=== PATIENT | male | born 1995 | race Asian ===

== ENCOUNTER 2017-01-09 16:40 | Emergency (ER) | payer OTHER ==
[~2017-01-09] VITALS: Ht 180.3 cm; Wt 82.6 kg
[2017-01-09 16:50] VITALS: TEMP 36.6; Ht 180.3 cm; Wt 82.6 kg
[2017-01-09] MEDS ORDERED: BCTROWC EXT (17:27)
--- NOTE | 2017-01-09 17:34 | EMERGENCY ROOM VISIT NOTE ---
ED Visit Note First contact with patient: 17:00 CHIEF COMPLAINT: Fall from skateboard. Abrasions located on left knee, left knuckles, left wrist, left elbow, left calf HISTORY OF PRESENT ILLNESS: This 21-year-old male patient presents to the emergency department approximately 3 hours status post fall from skateboard. Patient states he was riding a skateboard in parking lot of his apartment complex when he fell, landing on his left side. Patient denies injury to the joints or significant pain. Patient does report abrasions located on left knee , left elbow, left wrist, left knuckles, left calf. Patient has not cleaned up the abrasions, nor has he put any ointment on them. Patient has not taken pain medication. Patient denies head injury, loss consciousness, headache, dizziness , blurry vision, difficulty with ambulation. Patient is up-to-date on tetanus vaccination. REVIEW OF SYSTEMS: A complete 6 point review of systems was reviewed with the patient with pertinent positives and negatives as per history of present illness. All else were negative. ALLERGIES: None MEDICATIONS: None PMH: None SOCIAL HISTORY: Patient is an [employer], here from [place]. He lives locally. Patient denies alcohol and drug use. Patient does admit to smoking cigarettes, one pack per day. PHYSICAL EXAM: VITALS: Vitals are noted on the nurse's note and reviewed by myself. Vital signs stable. GENERAL: 21-year-old male, in no acute distress, nondiaphoretic, well-developed well-nourished. SKIN: Superficial abrasions noted over anterior left knee, porter , and calf. Superficial abrasions also noted over posterior aspect of left elbow , forearm, wrist, and knuckles. [place], warm, dry. No cyanosis or diaphoresis noted. EXTREMITIES: No cyanosis, edema, joint tenderness or swelling. No deformity. Pt. moves all extremities well. Strength in all upper and lower extremities 5/5. Distal pulses 2+. No tenderness or pain with movement of the joints including elbows, wrists, knees, ankles. EMERGENCY DEPARTMENT COURSE: Patient was seen and evaluated as above by me. Wounds were cleansed and irrigated with sodium chloride solution. No debridement necessary. No foreign body located in any abrasion. Bacitracin and bandages applied. Patient tolerated procedure well. Patient discharged home in good condition with prescription for mupirocin ointment and wound care instructions. DIAGNOSIS: Multiple abrasions related to fall from skateboard. DIFFERENTIAL DIAGNOSIS: Laceration, contusions, fractures of humerus, radius, ulna, patella, tibia, fibula, ankle, wrist, and/or metacarpals, cellulitis DISCHARGE INSTRUCTIONS & TREATMENT: Proper wound care is essential for adequate wound healing and infection prevention. You can shower and clean the wound with soap and water. Do not scour over the wound, pat dry with a towel. Do not submerse the wound (i.e. bathe or dish wash) until the wound has fully healed. You can use an antibiotic ointment with a dressing over the wound for the next 3 -4 days. After this time you may leave the wound dry and open to the air. Current/Historical Medications Scheduled Mupirocin (Bactroban 2% Oint), 1 APPLN EXT TID Allergies Coded Allergies: No Known Allergies (Unverified , 01/09/17) Vital Signs Date Time Temp Pulse Resp B/P (MAP) Pulse Ox O2 Delivery O2 Flow Rate FiO2 01/09/17 16:50 36.6 77 16 134/88 97 Room Air Departure Information Impression Primary Impression: Abrasion Dispostion Home / Self-Care Condition GOOD Prescriptions Mupirocin (Bactroban 2% Oint) 66 Appln/22 Gm Oint 1 APPLN EXT TID for 7 Days, #1 TUBE Prov: Anum Whittaker PA-C 01/09/17 Referrals No Doctor, Assigned (PCP) Patient Instructions [facility] Additional Instructions Proper wound care is essential for adequate wound healing and infection prevention. You can shower and clean the wound with soap and water. Do not scour over the wound, pat dry with a towel. Do not submerse the wound (i.e. bathe or dish wash) until the wound has fully healed. You can use an antibiotic ointment (mupirocin) with a dressing over the wound for the next 3-4 days. After this time you may leave the wound dry and open to the air. Use a non-stick dressing such as a large band-aid. Change the dressings once a day. Tylenol 1000mg every 6 hours for as needed for pain. Allow your wounds to air dry several hours per day when you are resting, but it is a good idea to keep them covered while sleeping to prevent irritation and the sheets sticking to the wound. Apply direct pressure for any bleeding. Return to the ER immediately for spreading redness, fevers, pus-like drainage, severe pain, or as needed. Follow-up with your primary care physician in 2 to 3 days for a recheck of your current condition.
[2017-01-09 17:40] VITALS: BP 129/82; PULSE 66; O2SAT 98
== END 2017-01-09 17:40 | disposition home or self-care (01) ==
LOC: C.EDB 16:42 → C.EDD 17:40
DX: S80.212A Abrasion, left knee, initial encounter (principal); S60.512A Abrasion of left hand, initial encounter; S60.812A Abrasion of left wrist, initial encounter; S80.812A Abrasion, left lower leg, initial encounter; V00.131A Fall from skateboard, initial encounter; Y93.51 Activity, roller skating (inline) and skateboarding